=== PATIENT | male | born 1980 | race Two or more races ===

== ENCOUNTER 2023-08-14 23:16 | Emergency (ER) | payer OTHER ==
[~2023-08-14] VITALS: Ht 172.7 cm; Wt 59.0 kg
[2023-08-15 01:09] LABS: HEMATOCRIT 43.7 % (39.0-48.0); HEMOGLOBIN 14.8 g/dL (13-16.00); MEAN CELL VOLUME 87.5 fL (80.0-100.00); MEAN CORPUSCULAR HEMOGLOBIN 29.6 pg (27.00-32.0); MEAN CORPUSCULAR HGB CONC 33.8 g/dl (32.0-36.0); PLATELET COUNT 282 K/uL (150-450); RED BLOOD COUNT 4.99 M/uL (4.00-6.00); RED CELL DISTRIBUTION WIDTH 13.1 % (11.5-14.5)
[2023-08-15 02:20] LABS: CALCIUM 9.5 mg/dL (8.5-10.1); CREATININE SERUM 1.2 mg/dL (0.70-1.30); GFR 65.47; POTASSIUM 3.92 mEq/L (3.5-5.1)
== END 2023-08-15 04:26 | disposition home or self-care (01) ==
LOC: ER 23:16
DX: R10.13 Epigastric pain (principal); R11.10 Vomiting, unspecified; K59.01 Slow transit constipation